=== PATIENT | male | born 1955 | race Caucasian/White ===

== ENCOUNTER 2021-11-21 12:13 | Outpatient (CLI) | payer MEDICARE, MEDICAID, SELFPAY ==
--- NOTE | 2021-11-21 12:29 | XRR_ITS ---
PROCEDURE INFORMATION: Exam: XR Chest Exam date and time: 11/21/2021 12:37 PM Age: 66 years old Clinical indication: Condition or disease; Lung condition and disease; Pulmonary nodule, solitary; Prior surgery; Surgery type: Lobectomy on right lung; Additional info: Lung nodule TECHNIQUE: Imaging protocol: Radiologic exam of the chest. Views: 2 views. Total images: 2 COMPARISON: CR Chest 2 views* [id number] 05/08/2017 12:21 PM FINDINGS: Lungs: Postsurgical changes noted in the right hilum and right upper lobe. Pleural spaces: Unremarkable. No pleural effusion. No pneumothorax. Heart/Mediastinum: Unremarkable. No cardiomegaly. Diaphragm: There is nonspecific elevation of the right hemidiaphragm. Bones/joints: Osseous structures are unchanged from the prior exam. XR/XR chest 2V* [id number] IMPRESSION: No acute cardiopulmonary process.
== END 2021-11-21 12:14 | disposition home or self-care (01) ==
PROVIDERS: PCP Family Medicine; Visit Provider Family Medicine
DX: Z00.00 Encounter for general adult medical examination without abnormal findings (principal); R91.8 Other nonspecific abnormal finding of lung field; R10.9 Unspecified abdominal pain
CPT/HCPCS: 71046; 80053; 80061; 83690; 85025; 86141

== ENCOUNTER → 2021-11-30 13:38 | Outpatient (BNVA) | payer MEDICARE, MEDICAID, SELFPAY | PROVIDERS: PCP Family Medicine; Referring Provider Family Medicine; Visit Provider Surgery | DX: R10.12 Left upper quadrant pain (principal) | CPT/HCPCS: 99203 ==

== ENCOUNTER → 2021-12-11 11:30 | Outpatient (BNVA) | payer MEDICARE, MEDICAID, SELFPAY | PROVIDERS: PCP Family Medicine; Visit Provider Family Medicine | DX: Z00.00 Encounter for general adult medical examination without abnormal findings (principal); R73.9 Hyperglycemia, unspecified; R10.12 Left upper quadrant pain; E78.5 Hyperlipidemia, unspecified | CPT/HCPCS: 80053; 80061; 83036; 83690; 85025; 86140 ==

== ENCOUNTER → 2023-02-28 12:28 | Outpatient (BNVA) | payer MEDICARE, MEDICAID, SELFPAY | PROVIDERS: PCP Family Medicine; Visit Provider Internal Medicine | DX: Z87.39 Personal history of other diseases of the musculoskeletal system and connective tissue (principal) | CPT/HCPCS: 36415; 80053; 85025; 85651; 86140; 86431; 86480; 86704; 86803; 87340; 99203 ==

== ENCOUNTER → 2023-04-16 13:11 | Outpatient (BNVA) | payer MEDICARE, MEDICAID, SELFPAY | PROVIDERS: PCP Family Medicine; Visit Provider Internal Medicine | DX: Z87.39 Personal history of other diseases of the musculoskeletal system and connective tissue (principal); M05.9 Rheumatoid arthritis with rheumatoid factor, unspecified; H93.19 Tinnitus, unspecified ear | CPT/HCPCS: 99214 ==

== ENCOUNTER → 2023-06-04 15:07 | Outpatient (BNVA) | payer MEDICARE, MEDICAID, SELFPAY | PROVIDERS: PCP Family Medicine; Visit Provider Internal Medicine | DX: Z87.39 Personal history of other diseases of the musculoskeletal system and connective tissue (principal); M05.9 Rheumatoid arthritis with rheumatoid factor, unspecified | CPT/HCPCS: 99214 ==

== ENCOUNTER 2023-06-14 14:23 | Outpatient (CLI) | payer MEDICARE, MEDICAID, SELFPAY ==
[2023-06-14 14:57] LABS: Basophils # 0.1 10^3/uL (0.0-0.1); Basophils % 1.6 %; Eosinophils # 0.4 10^3/uL (0.0-0.8); Eosinophils % 4.5 %; Hematocrit 41.8 % (37-53); Lymphocytes # 1.8 10^3/uL (0.8-4.8); Lymphocytes % 23.5 %; Mean Corpuscular Hemoglobin 30.1 pg (27-33); Mean Corpuscular Volume 88.6 fl (82-101); Mean Platelet Volume 9.7 fL (7.4-10.4); Monocytes # 1.1 10^3/uL (0.2-0.9); Monocytes % 13.6 %; Neutrophils # 4.34 10^3/uL (1.8-7.7); Neutrophils % 56.2 %; Nucleated Red Blood Cells % 0 %; Platelet Count 351 10^3/cmm (157-399); Red Blood Count 4.72 10^6/uL (3.85-5.65); Red Cell Distribution Width 13.6 % (12.1-15.1); White Blood Count 7.73 10^3/uL (3.29-11.43)
[2023-06-14 15:01] LABS: Erythrocyte Sedimentation Rate 12 mm/hr (0-10)
[2023-06-14 15:32] LABS: Alanine Aminotransferase 17 U/L (0-41); Albumin Level 4.2 g/dL (3.5-5.2); Alkaline Phosphatase 87 U/L (40-130); Anion Gap 14.6 (5-19); Aspartate Amino Transferase 12 U/L (0-40); Blood Urea Nitrogen 13 mg/dL (8-23); C Reactive Protein 3.7 mg/L (0.0-4.9); Calcium 9.6 mg/dL (8.5-10.5); Carbon Dioxide 26 mmol/L (22-29); Chloride 102 mmol/L (98-107); Globulin 2.8 g/dL (1.3-4.6); Glomerular Filtration Rate 83.9 mL/min (90-130); Glucose 108 mg/dL (65-115); Osmolality Calculated 287 mOsm/kg (285-295); Potassium 4.6 mmol/L (3.5-5.1); Sodium 138 mmol/L (136-145); Total Bilirubin 0.3 mg/dL (0.15-1.2)
== END 2023-06-14 14:24 | disposition home or self-care (01) ==
LOC: LAB 14:25
PROVIDERS: Internal Medicine; PCP Family Medicine; Visit Provider Internal Medicine Rheumatology
DX: Z87.39 Personal history of other diseases of the musculoskeletal system and connective tissue (principal); M05.9 Rheumatoid arthritis with rheumatoid factor, unspecified
CPT/HCPCS: 36415; 80053; 85025; 85651; 86140

== ENCOUNTER → 2023-10-29 12:51 | Outpatient (BNVA) | payer MEDICARE, MEDICAID, SELFPAY | PROVIDERS: PCP Family Medicine; Visit Provider Internal Medicine Rheumatology | DX: M05.79 Rheumatoid arthritis with rheumatoid factor of multiple sites without organ or systems involvement (principal); Z79.899 Other long term (current) drug therapy; Z71.85 Encounter for immunization safety counseling; Z87.891 Personal history of nicotine dependence; Z11.1 Encounter for screening for respiratory tuberculosis; Z11.59 Encounter for screening for other viral diseases | CPT/HCPCS: 36415; 80076; 82565; 85025; 86140; 99215 ==

== ENCOUNTER 2024-01-22 08:23 | Outpatient (CLI) | payer MEDICARE, MEDICAID, SELFPAY ==
--- NOTE | 2024-01-22 08:32 | XR_ITS ---
WS: [id number] Examination: XR chest 2V* [id number] Reason for Exam: History of lung cancer, dyspnea Date: 01/22/2024 Comparison: 11/21/2021. Findings: Heart is not enlarged. The mediastinum is not widened Surgical clips at the right hilum are identified. The emily remain prominent but unchanged The lungs are hyperinflated There is no pulmonary edema. No large effusion is identified. There is mild chronic blunting at the r ight costophrenic angle XR/XR chest 2V* [id number] Impression: The lungs are hyperinflated with chronic obstructive change No acute lung process is seen.
== END 2024-01-22 08:24 | disposition home or self-care (01) ==
LOC: RAD 08:28
PROVIDERS: PCP Family Medicine; Visit Provider Family Medicine
DX: Z85.118 Personal history of other malignant neoplasm of bronchus and lung (principal); R06.00 Dyspnea, unspecified; J98.4 Other disorders of lung
CPT/HCPCS: 71046

== ENCOUNTER → 2024-03-10 13:24 | Outpatient (BNVA) | payer MEDICARE, MEDICAID, SELFPAY | PROVIDERS: PCP Family Medicine; Visit Provider Internal Medicine Rheumatology | DX: M05.79 Rheumatoid arthritis with rheumatoid factor of multiple sites without organ or systems involvement (principal); Z79.899 Other long term (current) drug therapy; Z71.85 Encounter for immunization safety counseling; Z11.1 Encounter for screening for respiratory tuberculosis; Z11.59 Encounter for screening for other viral diseases; Z87.891 Personal history of nicotine dependence; H54.62 Unqualified visual loss, left eye, normal vision right eye | CPT/HCPCS: 36415; 80076; 82565; 85025; 85651; 86140; 99214 ==

== ENCOUNTER → 2024-03-13 10:04 | Outpatient (BNVA) | payer MEDICARE, MEDICAID, SELFPAY | PROVIDERS: PCP Family Medicine; Referring Provider Family Medicine; Visit Provider Student in an Organized Health Care Education/Training Program | DX: K92.1 Melena (principal); R12 Heartburn | CPT/HCPCS: 99204; 99214 ==

== ENCOUNTER 2024-04-13 10:06 | Day surgery (SDC) | payer MEDICARE, MEDICAID, SELFPAY ==
[2024-04-13 10:22] VITALS: BP 113/83; PULSE 127; RESP 18; TEMP 36.3; O2SAT 98; BMI 22.0
--- NOTE | 2024-04-13 10:32 | ECG_ITS ---
[facility] Date: 2024-04-13 Pat Name: Catracho Patel Department: Room: Gender: Male Complex Director: : [id number] Requested By: Marcia Fields Order Number: [id number] Mayra MD: DIONNE VILLA Measurements Intervals [place] Rate: 110 P: 76 MO: 120 QRS: 64 QRSD: 94 T: 81 QT: 319 QTc: 432 Interpretive Statements SINUS TACHYCARDIA NONSPECIFIC T-WAVE ABNORMALITY ABNORMAL RHYTHM ECG No previous ECG available for comparison Electronically Signed On 04-13-2024 18:53:44 OFFICE ADMINISTRATION by DIONNE VILLA [id number]
[2024-04-13] MEDS: sodium chloride 0.9% 1,000 ML 30 ML IV (10:35)
--- NOTE | 2024-04-13 10:38 | ANES.PREANE2 ---
Pre-Anesthetic Assessment Height/Weight: Height 1.73 m Weight 65.771 kg Temp Pulse Resp BP Pulse Ox O2 Del Method 97.3 F L 127 H 18 113/83 98 Room Air 04/13/24 10:22 04/13/24 10:22 04/13/24 10:22 04/13/24 10:22 04/13/24 10:22 04/13/24 10:22 Preop Diagnosis: bloody stools Operation Date: 04/13/24 11:30 Proposed Procedures p Colonoscopy 42675,G0105, 08241, R12, K92.1(Not Applicable) - Eleazar Amin MD s EGD(Not Applicable) - Eleazar Amin MD Familial anesthetic complications: none Was Beta Leyla taken within 24 hours: N/A Was Clonidine taken within 24 hours: N/A Last intake: Intake Last Liquid Date 04/12/24 Last Liquid Time 14:00 Last Solid Date 04/11/24 Last Solid Time 18:00 Social No alcohol and No tobacco quit smoking 20 years ago Exam alert and oriented x 3 Airway Submandibular: within normal limits Cervical ROM: within normal limits Mallampati: Class I Dentition: false Pulmonary Shortness of Breath right lobectomy 15 years ago CV/HEM Hypertension None reported Hepatic None reported GI Gastroesophageal Reflux Disease Metabolic None reported Musc/skel None reported Neuropsych None reported Anesthetic Plan ASA status: 3 Anesthesia: Anesthesia Evaluation and MAC Medications/Allergies Home Medications Medication Instructions Recorded Confirmed Last Taken Type losartan 50 mg tablet 50 mg PO DAILY #30 tabs 02/07/24 04/08/24 04/08/24 Rx leflunomide 20 mg tablet 20 mg PO DAILY #30 tabs 03/10/24 04/08/24 04/08/24 Rx tramadol 50 mg tablet 50 mg PO TID PRN pain (scale score 03/10/24 04/08/24 04/10/24 Rx 7-10) #60 tabs Allergies Allergy/AdvReac Type Severity Reaction Status Date / Time No Known Allergies Allergy Verified 04/08/24 11:49 Current Medications Generic Name Dose Route Start Last Admin Trade Name Freq PRN Reason Stop Dose Admin Sodium Chloride 1,000 mls @ 30 mls/hr 04/13/24 10:15 04/13/24 10:35 Sodium Chloride 0.9% IV 04/14/24 10:14 30 mls/hr .Q24H GRAYSON Administration PFSH Anesthesia Medical History History of lung cancer Immunization counseling High risk medication use Seropositive rheumatoid arthritis of multiple sites Tinnitus Hx of rheumatoid arthritis Abdominal pain Surgical History Hx of eye surgery bilateral eyes 6-7 on left eye History of lobectomy of lung Family History (Updated 03/13/24 @ 10:36 by ANDREZ Covarrubias) Mother Diabetes Unknown Cancer uncle Sister Colon cancer Social History Smoking and tobacco/nicotine status: never used tobacco/nicotine Quit status (tobacco/nicotine): has quit using Year quit tobacco: 2008 Former quit date comment: ~40 pack years Alcohol intake: current Alcohol intake frequency: holidays/special occasions only Alcohol type: beer Data Anesthesia Cardiac Studies: No Data to Display
--- NOTE | 2024-04-13 11:48 | W.PM.OPSFHP ---
Same Day Surgery H&P Indication for Procedure/HPI DATE OF PROCEDURE: April 13, 2024 CHIEF COMPLAINT/INDICATIONFOR SURGICAL PROCEDURE: heartburn and hematochezia PREOP DIAGNOSIS: heartburn and hematochezia PLANNED PROCEDURE: Operation Date: 04/13/24 11:30 Proposed Procedures p Colonoscopy 52712,G0105, 82477, R12, K92.1(Not Applicable) - Eleazar Amin MD s EGD(Not Applicable) - Eleazar Amin MD Medications/Allergies* Allergies/Adverse Reactions Allergy/AdvReac Type Severity Reaction Status Date / Time No Known Allergies Allergy Verified 04/08/24 11:49 Current Medications: Generic Name Dose Route Start Last Admin Trade Name Freq PRN Reason Stop Dose Admin Sodium Chloride 1,000 mls @ 30 mls/hr 04/13/24 10:15 04/13/24 10:35 Sodium Chloride 0.9% IV 04/14/24 10:14 30 mls/hr .Q24H GRAYSON Administration Pertinent History/Comorbid Conditions* Medical History (Updated 03/12/24 @ 12:10 by Gerhard Veras MD) History of lung cancer Immunization counseling High risk medication use Seropositive rheumatoid arthritis of multiple sites Tinnitus Hx of rheumatoid arthritis Abdominal pain Surgical History (Updated 10/12/22 @ 11:19 by Doug Bowen NP) Hx of eye surgery bilateral eyes 6-7 on left eye History of lobectomy of lung Family History (Updated 03/13/24 @ 10:36 by ANDREZ Covarrubias) Colon cancer Sister Diabetes Mother Cancer Unknown uncle Social History Smoking and tobacco/nicotine status: never used tobacco/nicotine Quit status (tobacco/nicotine): has quit using Year quit tobacco: 2008 Former quit date comment: ~40 pack years Alcohol intake: current Alcohol intake frequency: holidays/special occasions only Alcohol type: beer Pertinent Exam Findings alert, oriented x 3, clear to auscultation bilaterally, regular rate & rhythm and procedure specific exam findings Abdomen soft, nt, nd Recommendations Surgery/Procedure today Coding Level of Care Code Acute Code for Chg Fwd
[2024-04-13 11:51] VITALS: BP 132/85; PULSE 89; RESP 18; TEMP 36.2; O2SAT 96
[2024-04-13 11:59] VITALS: BP 120/88; PULSE 98; RESP 18; TEMP 36.2; O2SAT 97
--- NOTE | 2024-04-13 12:45 | ANE.PACU2 ---
Inpatient post-anesthesia follow up: Airway intact: Yes Vital signs: Temperature 97.1 F Pulse Rate 98 Respiratory Rate 18 Blood Pressure 120/88 Pulse Oximetry 97 Oxygen Delivery Me thod Room Air Oxygen Flow Rate Fraction of Inspir ed Oxygen Hydration adequate: Yes Nausea and vomiting: No Pain level: 1 Mental status: Baseline
== END 2024-04-13 12:35 | disposition home or self-care (01) ==
PROVIDERS: PCP Family Medicine; Visit Provider Student in an Organized Health Care Education/Training Program
PROC: 0DJD8ZZ Inspection of Lower Intestinal Tract, Via Natural or Artificial Opening Endoscopic (ICD-10-PCS; CPT 45378; principal; 2024-04-13 11:30)
PROC: 0DJ08ZZ Inspection of Upper Intestinal Tract, Via Natural or Artificial Opening Endoscopic (ICD-10-PCS; CPT 43235; 2024-04-13 11:30)
DX: K92.1 Melena (principal); D12.4 Benign neoplasm of descending colon; D12.8 Benign neoplasm of rectum; R12 Heartburn; K29.70 Gastritis, unspecified, without bleeding; K29.80 Duodenitis without bleeding; Z85.118 Personal history of other malignant neoplasm of bronchus and lung; Z87.891 Personal history of nicotine dependence; I10 Essential (primary) hypertension; K21.9 Gastro-esophageal reflux disease without esophagitis
CPT/HCPCS: 43239; 45385; 88305; 93005; J2704; J7030

== ENCOUNTER → 2024-05-15 08:56 | Outpatient (BNVA) | payer MEDICARE, MEDICAID, SELFPAY | PROVIDERS: PCP Family Medicine; Visit Provider Student in an Organized Health Care Education/Training Program | DX: Z09 Encounter for follow-up examination after completed treatment for conditions other than malignant neoplasm (principal) | CPT/HCPCS: 99213 ==

== ENCOUNTER → 2024-06-01 13:00 | Outpatient (BNVA) | payer MEDICARE, MEDICAID, SELFPAY | PROVIDERS: PCP Family Medicine; Visit Provider Internal Medicine Rheumatology | DX: Z79.899 Other long term (current) drug therapy (principal); M05.79 Rheumatoid arthritis with rheumatoid factor of multiple sites without organ or systems involvement; Z11.1 Encounter for screening for respiratory tuberculosis; Z11.59 Encounter for screening for other viral diseases; Z71.85 Encounter for immunization safety counseling | CPT/HCPCS: 36415; 80076; 82565; 85025; 85651; 86140; 86480; 86704; 86803; 87340; 99214 ==

== ENCOUNTER → 2024-09-07 14:21 | Outpatient (BNVA) | payer MEDICARE, MEDICAID, SELFPAY | PROVIDERS: PCP Family Medicine; Visit Provider Internal Medicine Rheumatology | DX: M05.79 Rheumatoid arthritis with rheumatoid factor of multiple sites without organ or systems involvement (principal); Z79.899 Other long term (current) drug therapy; Z71.85 Encounter for immunization safety counseling | CPT/HCPCS: 36415; 80076; 82565; 85025; 85651; 86140; 99214 ==

== ENCOUNTER → 2024-11-06 12:29 | Outpatient (BNVA) | payer MEDICARE, MEDICAID, SELFPAY | PROVIDERS: PCP Family Medicine; Visit Provider Family Medicine Adult Medicine | DX: I70.0 Atherosclerosis of aorta (principal) | CPT/HCPCS: 71046 ==

== ENCOUNTER 2025-01-11 09:06 | Outpatient (CLI) | payer MEDICARE, MEDICAID, SELFPAY ==
--- NOTE | 2025-01-11 15:24 | XR_ITS ---
Exam: XR cervical spine 4-5V [id number] Date/Time of Exam: 01/11/2025 9:22 AM Reason For Exam: R cervical radiculopathy w numbness in the 4th/5th fingers DLP: Comparison 04/28/2014. 5 mm degenerative anterolisthesis of C4 on C5. Facet arthropathy and degenerative disc change from C3-C7. Reversal of the normal cervical lordosis at the mid and lower cervical levels. Narrowing of the bony neuroforaminal on the RIGHT at C3-4, C4-5, C5-6 and C6-7. Narrowing of the bony neural foramina on the LEFT at C3-4, C4-5 and C6-7. Normal paraspinal soft tissues. The dens is intact. Levoscoliosis. IMPRESSION: 1. 5 mm degenerative anterolisthesis of C4 on C5. Additional degenerative changes and bilateral foraminal stenosis as detailed above. 2. No fracture or instability identified. MTDD
== END 2025-01-11 09:07 | disposition home or self-care (01) ==
LOC: RAD 09:09
PROVIDERS: PCP Family Medicine; Visit Provider Family Medicine
DX: M54.12 Radiculopathy, cervical region (principal); M48.02 Spinal stenosis, cervical region
CPT/HCPCS: 72050

== ENCOUNTER → 2025-01-19 14:04 | Outpatient (BNVA) | payer MEDICARE, MEDICAID, SELFPAY | PROVIDERS: PCP Family Medicine; Visit Provider Internal Medicine Rheumatology | DX: M05.79 Rheumatoid arthritis with rheumatoid factor of multiple sites without organ or systems involvement (principal); Z79.899 Other long term (current) drug therapy; Z71.85 Encounter for immunization safety counseling | CPT/HCPCS: 36415; 80076; 82565; 85025; 85651; 86140; 99214 ==

== ENCOUNTER 2025-01-22 15:14 | Outpatient (CLI) | payer MEDICARE, MEDICAID, SELFPAY ==
--- NOTE | 2025-01-22 15:30 | MR_ITS ---
WS: [id number] MRI CERVICAL SPINE NONCONTRAST TECHNIQUE: Sagittal T1, T2 and STIR imaging. Axial T2, gradient, and fiesta imaging. CLINICAL INFORMATION: Right cervical radiculopathy with weakness in right hand COMPARISON: None. FINDINGS: Straightening of the normal cervical lordosis. Moderate spondylitic changes. Slight anterolisthesis C4 on C5 and C5 on C6. Cord signal is normal. C2-C3: Moderate LEFT facet arthropathy. Mild to moderate LEFT bony foraminal narrowing. C3-C4: Disc osteophyte complex with mild central canal stenosis. Moderate to advanced LEFT facet arthropathy. Moderate LEFT bony foraminal narrowing. C4-C5: Disc osteophyte complex with endplate ridging. Moderate to advanced RIGHT facet arthropathy. Severe RIGHT bony foraminal narrowing. Mild LEFT bony foraminal narrowing. C5-C6: Disc osteophyte complex with mild central canal stenosis. Moderate RIGHT and mild LEFT bony foraminal narrowing. Uncovertebral joint hypertrophy. C6-C7: Disc osteophyte complex with moderate to severe LEFT and moderate RIGHT bony foraminal narrowing. Uncovertebral joint hypertrophy. C7-T1: Mild to moderate RIGHT and no significant LEFT foraminal narrowing. Mild facet arthropathy. Visualized brain stem structures: Normal. Prevertebral soft tissues: Normal. MR/MR cervical spin wo con* [id number] IMPRESSION: 1. Straightening of the normal cervical doses. Moderate spondylitic changes. 2. Mild central canal stenosis C3-C4 and C5-C6 due to disc osteophyte complexe s. 3. Moderate to severe bony foraminal narrowing worse at LEFT C3-4, RIGHT C4-5, RIGHT C5-C6, and LEFT C6-7.
== END 2025-01-22 15:15 | disposition home or self-care (01) ==
LOC: RAD 15:15
PROVIDERS: PCP Family Medicine; Visit Provider Family Medicine
DX: M54.12 Radiculopathy, cervical region (principal); M48.02 Spinal stenosis, cervical region; M25.78 Osteophyte, vertebrae; M47.892 Other spondylosis, cervical region; R93.7 Abnormal findings on diagnostic imaging of other parts of musculoskeletal system; M48.04 Spinal stenosis, thoracic region; M47.894 Other spondylosis, thoracic region
CPT/HCPCS: 72141

== ENCOUNTER → 2025-02-04 15:07 | Outpatient (BNVA) | payer MEDICARE, MEDICAID, SELFPAY | PROVIDERS: PCP Family Medicine; Visit Provider Orthopaedic Surgery | DX: M54.12 Radiculopathy, cervical region (principal); M48.02 Spinal stenosis, cervical region; Z01.818 Encounter for other preprocedural examination; G99.2 Myelopathy in diseases classified elsewhere | CPT/HCPCS: 36415; 72050; 80053; 81001; 85025; 99204 ==

== ENCOUNTER 2025-03-17 14:32 | Inpatient (IN) | payer MEDICARE, MEDICAID, SELFPAY ==
[2025-03-17] VITALS (17 sets, daily range): BP systolic 140–179; BP diastolic 73–104; PULSE 78–100; RESP 16–18; TEMP 36.1–36.8; O2SAT 92–99; BMI 20.9
--- NOTE | 2025-03-17 10:10 | XR_ITS ---
WS: [id number] Exam: XR cervical spine 3V* [id number] Date/Time of Exam: 03/17/2025 10:10 AM Reason For Exam: [facility]AY[facility] IMAGES DLP: Intraoperative AP and lateral C-arm images of the cervical spine are submitted. Images depict anterior plate and screw fixation of the cervical spine from C3-C7 with intervening disc spacers. Images were obtained for intraoperative visualization purposes.
--- NOTE | 2025-03-17 10:46 | P.ANESASSM_ITS ---
Pre-Anesthetic Assessment Height/Weight: Height 1.73 m Weight 62.596 kg Temp Pulse Resp BP Pulse Ox O2 Del Method 98.2 F 83 18 176/93 97 Room Air 03/17/25 10:31 03/17/25 10:31 03/17/25 10:31 03/17/25 10:31 03/17/25 10:31 03/17/25 10:31 Preop Diagnosis: Cervical stenosis with radiculopathy and myelopathy Operation Date: 03/17/25 11:30 Proposed Procedures p Anterior Cervical Discectomy & Fusion ACDF(Not Applicable) - Curtis Cadet, DO Familial anesthetic complications: None Was Beta Leyla taken within 24 hours: N/A Was Clonidine taken within 24 hours: N/A Last intake: Intake Last Liquid Date 03/16/25 Last Liquid Time 20:00 Last Solid Date 03/16/25 Last Solid Time 20:00 Social No alcohol and No tobacco Exam alert, oriented x 3, clear to auscultation bilaterally and regular rate & rhythm Airway Mallampati: Class II Comments: Comments: full [place] Pulmonary Chronic Obstructive Pulmonary Disease CV/HEM Hypertension [facility] Rheumatoid Arthritis Anesthetic Plan ASA status: 3 Anesthesia: General Risk of > 500 ml blood loss (7ml/kg in children): No Medications/Allergies Home Medications ?Medication ?Instructions ?Recorded ?Confirmed ?Last Taken ?Type adalimumab 40 mg/0.8 mL 40 mg (0.8 mL) SUBCUT Q14D # 2 ea 01/19/25 03/16/25 03/16/25 10:00 Rx subcutaneous pen kit (Humira Pen) leflunomide 20 mg tablet 20 mg PO DAILY #90 tabs 07/1403/16/25 03/16/25 10:00 Rx pantoprazole 40 mg tablet,delayed 40 mg PO BID #84 tab s 01/19/25 03/16/25 03/16/25 10:00 Rx release (Protonix) losartan 50 mg tablet 75 mg (1.5 x 50 mg) PO DAILY #135 01/20/25 03/16/25 03/16/25 10:00 Rx tabs pregabalin 100 mg capsule (Lyrica) 100 mg PO BID #60 c aps 01/20/25 03/16/25 03/16/25 10:00 Rx gabapentin 300 mg capsule 300 mg PO BID #60 caps 02/0903/16/25 03/16/25 Rx dorzolamide 22.3 mg-timolol 6.8 22.3 drp ophthalmic (e ye) 2XD 03/17/25 03/17/25 03/16/25 History mg/mL eye drops prednisolone acetate 1 % eye 1 drp ophthalmic (eye) 2X D 03/17/25 03/17/25 03/16/25 History drops,suspension tramadol 50 mg tablet 50 mg PO TID PRN pain (scale score 03/17/25 03/17/25 03/16/25 Rx 7-10) #60 tabs Allergies Allergy/AdvReac Type Severity Reaction Status Date / Time No Known Allergies Allergy Verified 03/16/25 11:54 [facility] Anesthesia Medical History (Updated 02/04/25 @ 17:29 by Curtis Cadet DO) Right-sided chest wall pain History of lung cancer Immunization counseling High risk medication use Seropositive rheumatoid arthritis of multiple sites Tinnitus Hx of rheumatoid arthritis Abdominal pain Surgical History Hx of eye surgery bilateral eyes 6-7 on left eye History of lobectomy of lung Family History Mother Diabetes Unknown Cancer uncle Sister Colon cancer Social History Smoking and tobacco/nicotine status: former use of tobacco/nicotine Quit status (tobacco/nicotine): has quit using Year quit tobacco: 2008 Former quit date comment: ~40 pack years Alcohol intake: current Alcohol intake frequency: few times a week Alcohol type: beer
--- NOTE | 2025-03-17 11:17 | P.HP_ITS ---
Same Day Surgery H&P Indication for Procedure/HPI DATE OF PROCEDURE: March 17, 2025 CHIEF COMPLAINT/INDICATIONFOR SURGICAL PROCEDURE: Neck and arm pain PREOP DIAGNOSIS: Cervical stenosis with radiculopathy and myelopathy PLANNED PROCEDURE: Operation Date: 03/17/25 11:30 Proposed Procedures p Anterior Cervical Discectomy & Fusion ACDF(Not Applicable) - Curtis Cadet DO Medications/Allergies* Home Medications ?Medication ?Instructions ?Recorded ?Confirmed ?Type dorzolamide 22.3 mg-timolol 6.8 22.3 drp ophthalmic (e ye) 2XD 03/17/25 03/17/25 History mg/mL eye drops prednisolone acetate 1 % eye 1 drp ophthalmic (eye) 2X D 03/17/25 03/17/25 History drops,suspension Allergies/Adverse Reactions Allergy/AdvReac Type Severity Reaction Status Date / Time No Known Allergies Allergy Verified 03/16/25 11:54 Current Medications: Generic Name Dose Route Start Last Admin Trade Name Freq PRN Reason Stop Dose Admin Sodium Chloride 1,000 mls @ 30 mls/hr 03/17/25 10:00 03/17/25 11:09 Sodium Chloride 0.9% IV 03/18/25 09:59 30 mls/hr .Q24H GRAYSON Administration Pertinent History/Comorbid Conditions* Medical History (Updated 02/04/25 @ 17:29 by Curtis Cadet DO) Right-sided chest wall pain History of lung cancer Immunization counseling High risk medication use Seropositive rheumatoid arthritis of multiple sites Tinnitus Hx of rheumatoid arthritis Abdominal pain Surgical History (Updated 10/12/22 @ 11:19 by Doug Bowen NP) Hx of eye surgery bilateral eyes 6-7 on left eye History of lobectomy of lung Family History (Updated 03/13/24 @ 10:36 by ANDREZ Covarrubias) Colon cancer Sister Diabetes Mother Cancer Unknown uncle Social History Smoking and tobacco/nicotine status: former use of tobacco/nicotine Quit status (tobacco/nicotine): has quit using Year quit tobacco: 2008 Former quit date comment: ~40 pack years Alcohol intake: current Alcohol intake frequency: few times a week Alcohol type: beer Pertinent Exam Findings oriented x 3 and procedure specific exam findings Recommendations Risks and benefits of procedure reviewed Surgery/Procedure today Coding Level of Care Code Acute Code for Chg Fwd
[2025-03-17] MEDS: ceFAZolin 2,000 mg SDV 2000 MG IVP ×2 (11:51→20:34)
[2025-03-17] MEDS: lidocaine-epi 1% 20 mL INJ INJECTION (12:36)
--- NOTE | 2025-03-17 14:41 | PM.OP ---
Operative Report Date of procedure: March 17, 2025 Pre-op diagnosis: Cervical stenosis with radiculopathy and myelopathy Post-op diagnosis: same Procedure done: 1. Anterior diskectomy C3/4 2. Anterior diskectomy C4/5 3. Anterior diskectomy C5/6 4. Anterior discectomy C6/7 5. Insertion of cage C3/4 6. Insertion of cage C4/5 7. Insertion of cage C5/6 8. Insertion of Cage C6/7 9. Instrumentation with anterior plate from C3-C7 10.Use of allograft Surgeon: Curtis Cadet DO Estimated blood loss (mL): 20 Procedure: 1. Anterior diskectomy C3/4 2. Anterior diskectomy C4/5 3. Anterior diskectomy C5/6 4. Anterior discectomy C6/7 5. Insertion of cage C3/4 6. Insertion of cage C4/5 7. Insertion of cage C5/6 8. Insertion of Cage C6/7 9. Instrumentation with anterior plate from C3-C7 10.Use of allograft The patient was taken to the operating room, where he underwent general endotracheal anesthesia without complications. He was then positioned supine on the operating table, and all areas of impingement were well padded. The arms were carefully padded and tucked at his sides. A roll was placed between the shoulder blades.. An x-ray was done to determine the appropriate level for the skin incision. The entire neck was then sterilely prepped and draped in the usual fashion. Neuromonitoring was attached prior to prepping. A transverse skin incision was made and carried down to the platysma muscle. This was then split in line with its fibers. Blunt dissection was carried down medial to the carotid sheath and lateral to the trachea and esophagus until the anterior cervical spine was visualized. A needle was placed into a disc and an x-ray was done to determine its location. The longus colli muscles were then elevated bilaterally with the electrocautery unit. Self-retaining retractors were placed deep to the longus colli muscle. Attention was brought to the C3/4 level that was confirmed on x-ray. A caspar pin was placed into the C3 vertebrae and the C4 vertebrae. The disk space was then distracted. The microscope was then brought in. A radical anterior discectomies were performed at C 3/4. This included complete removal of the anterior annulus, nucleus, and posterior annulus. The posterior longitudinal ligament was removed as were the posterior osteophytes. Foraminotomies were then accomplished bilaterally. This was done using a high speed beny, kerrison rongeurs and curretes Once all of this was accomplished, the curved currette was used to check for any residual compression. The central canal was wide open as were the foramen. A high-speed bur was used to remove the cartilaginous endplates above and below the interspace. Bleeding cancellous bone was exposed. The disc space were measured and appropriate size cage were placed sterilely onto the field. Allograft graft was packed into the cages. The cage was then placed and there was good juxtaposition against the bleeding decorticated surfaces and good distraction of each interspace. Attention was brought to the next interspace. The [place] pins were removed. Bone wax was used to prevent any bleeding from occurring at the pin sites. Attention was brought to the C4/5 level that was confirmed on x-ray. A caspar pin was placed into the C4 vertebrae and the C5 vertebrae. The disk space was then distracted. The microscope was then brought in. A radical anterior discectomies were performed at C4/5. This included complete removal of the anterior annulus, nucleus, and posterior annulus. The posterior longitudinal ligament was removed as were the posterior osteophytes. Foraminotomies were then accomplished bilaterally. This was done using a high speed beny, kerrison rongeurs and curretes Once all of this was accomplished, the curved currette was used to check for any residual compression. The central canal was wide open as were the foramen. A high-speed bur was used to remove the cartilaginous endplates above and below the interspace. Bleeding cancellous bone was exposed. The disc space were measured and appropriate size cage were placed sterilely onto the field. Allograft graft was packed into the cages. The cage was then placed and there was good juxtaposition against the bleeding decorticated surfaces and good distraction of each interspace. Attention was brought to the next interspace. The [place] pins were removed. Bone wax was used to prevent any bleeding from occurring at the pin sites. Attention was brought to the C5/6 level that was confirmed on x-ray. A caspar pin was placed into the C5 vertebrae and the C6 vertebrae. The disk space was then distracted. The microscope was then brought in. A radical anterior discectomies were performed at C5/6. This included complete removal of the anterior annulus, nucleus, and posterior annulus. The posterior longitudinal ligament was removed as were the posterior osteophytes. Foraminotomies were then accomplished bilaterally. This was done using a high speed beny, kerrison rongeurs and curretes Once all of this was accomplished, the curved currette was used to check for any residual compression. The central canal was wide open as were the foramen. A high-speed bur was used to remove the cartilaginous endplates above and below the interspace. Bleeding cancellous bone was exposed. The disc space were measured and appropriate size cage were placed sterilely onto the field. Allograft graft was packed into the cages. The cage was then placed and there was good juxtaposition against the bleeding decorticated surfaces and good distraction of each interspace. Attention was brought to the next interspace. The [place] pins were removed. Bone wax was used to prevent any bleeding from occurring at the pin sites. Attention was brought to the C6/7 level that was confirmed on x-ray. A caspar pin was placed into the C6 vertebrae and the C7 vertebrae. The disk space was then distracted. The microscope was then brought in. A radical anterior discectomies were performed at C6/7. This included complete removal of the anterior annulus, nucleus, and posterior annulus. The posterior longitudinal ligament was removed as were the posterior osteophytes. Foraminotomies were then accomplished bilaterally. This was done using a high speed beny, kerrison rongeurs and curretes Once all of this was accomplished, the curved currette was used to check for any residual compression. The central canal was wide open as were the foramen. A high-speed bur was used to remove the cartilaginous endplates above and below the interspace. Bleeding cancellous bone was exposed. The disc space were measured and appropriate size cage were placed sterilely onto the field. Allograft graft was packed into the cages. The cage was then placed and there was good juxtaposition against the bleeding decorticated surfaces and good distraction of each interspace. The [place] pins were removed. Bone wax was used to prevent any bleeding from occurring at the pin sites. The appropriate size anterior cervical locking plate was chosen and bent into gentle lordosis. Two screws were then placed into each of the vertebral bodies at C3, C4, C5, C6 and C7. There was excellent purchase. A final x-ray was done confirming good position of the hardware and Cages. The locking screws were then applied, also with excellent purchase. Following a final copious irrigation, there was good hemostasis and no dural leaks. The carotid pulse was strong. The wounds were then closed in layers using 2-0 Vicryl suture for the platysma muscle, 2-0 Vicryl suture for the subcutaneous tissue, and 4-0 monocryl suture in a subcuticular skin closure. Glue was placed followed by application of a sterile dressing. The drain was hooked to bulb suction. A soft collar was applied. The patient was then carefully returned to the supine position on his hospital bed where he was reversed and extubated and taken to the recovery room having tolerated the procedure well.
--- NOTE | 2025-03-17 15:00 | ANE.PACU2 ---
Inpatient post-anesthesia follow up: Airway intact: Yes Vital signs: Temperature 97.7 F Pulse Rate 80 Respiratory Rate 18 Blood Pressure 128/73 Pulse Oximetry 96 Oxygen Delivery Me thod Room Air Oxygen Flow Rate 1 Fraction of Inspir ed Oxygen Hydration adequate: Yes Nausea and vomiting: No Pain level: 1 Mental status: Baseline
[2025-03-17] MEDS: HYDROcodone-acetaminophen 5-325 mg Tablet PO ×2 (15:47→20:34)
[2025-03-17] MEDS: morphine 4 mg/mL SDV 1 mL 2 MG IVP (18:11)
[2025-03-18] VITALS (7 sets, daily range): BP systolic 116–148; BP diastolic 71–82; PULSE 70–98; RESP 16–18; TEMP 36.3–36.8; O2SAT 90–97
[2025-03-18] MEDS: ceFAZolin 2,000 mg SDV 2000 MG IVP (04:11)
[2025-03-18] MEDS: HYDROcodone-acetaminophen 5-325 mg Tablet PO (08:43)
[2025-03-18] MEDS: phenol oral Spray 177 mL 3 SPRAY MUCOUS MEM (08:49)
--- NOTE | 2025-03-18 09:48 | P.DS_ITS ---
Discharge Providers Date of Admission: 03/17/25 14:32 Date of Discharge: March 18, 2025 Attending Provider at Admission: Curtis Cadet DO Attending Provider at Discharge: Curtis Cadet DO Primary Care Provider: Gerhard Veras MD Reason for Visit Reason for Visit: M54.12 Physical Exam Narrative: doing well Urinary Catheter Management: Garcia: Cath Placed During This Visit: no Reason for Continuing Indwelling Catheter: Required Immobilization for Trauma or Surgery or Anesthesia Discharge Data Studies Completed and Pending Pending at discharge Category Date Time Status C-arm Fluoroscopy 01721 Routine Exams 03/17/25 09:57 Taken Laboratory Results Blood Type A Positive 03/17/25 11:00 Rho(D) Type Rh positive 03/17/25 11:00 Antibody Screen Negative 03/17/25 11:00 Vitals Last Vital Signs Temp 97.7 F 03/18/25 07:42 Pulse 80 03/18/25 07:42 Resp 18 03/18/25 07:42 BP 128/73 03/18/25 07:42 Pulse Ox 96 03/18/25 07:42 O2 Del Method Room Air 03/18/25 07:42 O2 Flow Rate 1 03/18/25 02:09 Discharge Plan Discharge Patient Disposition: Home Condition: Stable Prescriptions: New hydrocodone-acetaminophen 5-325 mg tablet 1 - 2 tab PO .Q4-6H Qty: 40 0RF hydrocodone-acetaminophen 5-325 mg tablet 1 - 2 tab PO .Q4-6H Qty: 40 0RF Continued Humira Pen 40 mg/0.8 mL pen injector kit 40 mg SUBCUT Q14D Qty: 2 5RF leflunomide 20 mg tablet 20 mg PO DAILY Qty: 90 1RF pantoprazole [Protonix] 40 mg tablet,delayed release (DR/EC) 40 mg PO BID Qty: 84 1RF losartan 50 mg tablet 75 mg PO DAILY Qty: 135 3RF pregabalin [Lyrica] 100 mg capsule 100 mg PO BID Qty: 60 3RF gabapentin 300 mg capsule 300 mg PO BID Qty: 60 6RF prednisolone acetate 1 % drops,suspension 1 drp ophthalmic (eye) 2XD dorzolamide-timolol 22.3-6.8 mg/mL drops 22.3 drp ophthalmic (eye) 2XD Discontinued tramadol 50 mg tablet 50 mg PO TID PRN (Reason: pain (scale score 7-10)) Qty: 60 0RF Discharge Diet: Advance as tolerated Discharge Activity: Limit activity as instructed Patient Instructions: Acute Wound Care (DC), Opioid Safety, Post Anesthesia Care, Patient Portal & Barrett Instructions Activity Restrictions/Additional Instructions: Thank you for choosing [facility] for your care! The following is a list of instructions, from your provider, to follow upon your discharge to ensure you have the optimal recovery from your recent injury or surgery. Anterior Cervical Discectomy and Fusion: What to Expect at Home Your Recovery Follow-up care is a ruiz part of your treatment and safety. Be sure to make and go to all appointments, and call your doctor if you are having problems. If you do not already have a follow-up appointment made, call office in the next 1-3 days to make follow up appointment for 2 weeks at [phone]. It is also a good idea to know your test results and keep a list of the medicines you take. You can expect your neck to feel stiff or sore after surgery. This should improve in the weeks after surgery. But it may take 4 to 6 months for you to get better completely. You may have trouble sitting or standing in one position for very long and may need pain medicine in the weeks after your surgery. It may take 4 to 6 weeks to get back to your usual activities, but it may depend on what kind of surgery you had. Your throat will feel sore and it may be difficult to swallow for the first 3 days after your surgery. As long as you can get liquids down without difficulty, this should slowly improve, otherwise call our office or seek medical attention if it becomes increasingly difficult to get anything down including liquids. Avoid hot liquids for first 3-5 days. Soothing foods/liquids such as jello, pudding, and luke warm soups are recommended until swallowing improves. Staying elevated will also help, it's advised you keep propped up at while sleeping to help reduce the swelling. You may use an ice pack directly on your incision or around it on the front of your neck, using a cloth to protect your skin; and a heating pad to the back of your neck as needed. Do not use over the counter anti-inflammatory medications (Ibuprofen, Motrin, Aleve, Advil, etc) Taking these meds after having a fusion can delay fusion rates, we recommend you avoid them for the first 3 months after your surgery[address] Dr. Cadet may advise you to work with a physical therapist to strengthen the muscles around your neck and back - this will be discussed at your follow - up appointments. The pain or numbness you were having in your arms before surgery should get better or go away completely. This care sheet gives you a general idea about how long it will take for you to recover. But each person recovers at a different pace. Follow the steps below to get better as quickly as possible. How can you care for yourself at home? Activity ? Rest when you feel tired. Getting enough sleep will help you recover. ? Try to walk each day. Start by walking a little more than you did the day before. Bit by bit, increase the amount you walk. Walking boosts blood flow and helps prevent pneumonia and constipation. Walking may also decrease your muscle soreness after surgery. ? No lifting anything that is more that 5 pounds. This may include heavy grocery bags and milk containers, a heavy briefcase or backpack, cat litter or dog food bags, a child, or a vacuum block cleaner. ? Avoid strenuous activities, such as bicycle riding, jogging, weightlifting, or aerobic exercise, until your doctor says it is okay. ? Do not drive until your follow-up visit after your surgery, or until your doctor says it isokay. ? Avoid taking long car trips for 2 to 4 weeks after surgery. Your neck may become tired and painful from sitting too long in one position. ? You will probably need to take 4 to 6 weeks off from work. It depends on the type of work you do and how you feel. ? You may have sex as soon as you feel able, but avoid positions that put stress on your neck or cause pain. Diet ? You can eat your normal diet. If your stomach is upset, try bland, low-fat foods like plain rice, broiled chicken, toast, and yogurt ? Drink plenty of fluids. If you have kidney, heart, or liver disease and have to limit fluids, talk with your doctor before you increase the amount of fluids you drink. ? You may notice that your bowel movements are not regular right after your surgery. This is common. Try to avoid constipation and straining with bowel movements. You may want to take a fiber supplement every day. If you have not had a bowel movement after a couple of days, ask your doctor about taking a mild laxative. Medicines ? Take pain medicines exactly as directed. 1. If Dr. Cadet gave you a prescription medicine for pain, take lt as prescribed. 2. Do not take two or more pain medicines at the same time unless the doctor told you to. Many pain medicines have acetaminophen, which is Tylenol. Too much acetaminophen {Tylenol) can be harmful. 3. If you think your pain pill is making you sick to your stomach: 4. Take your pills after meals (unless your doctor has told you not to). 5. Ask your Dr. for a different pain pill. Incisioncare ? Remove your dressing 48hours after your surgery. Ok to shower and get the incision wet. Do not overtly wash your incision. When done, pad dry, leave open to air thereafter. Avoid creams and ointments directly on your incision. ? Your sutures in the incision will dissolve and fall out on their own. ? Keep the area clean and dry. You may cover it with a gauze bandage if it weeps or rubs against clothing; if you choose to do this, change the dressing everyday. Other instructions ? Use a heating pad, hot water bottle, or gentle massage on your back to reduce stiffness. Avoid putting heat on your incision When should you call for help? ? Call 911 anytime you think you may need emergency care. For example, call if: ? You pass out (lose consciousness). ? You have sudden chest pain and shortness of breath, or you cough upblood. ? You cannot swallow. ? You have severe pain in your neck or back. ? Call your Dr. or seek immediate medical care if: ? You have pain that does not get better after you take pain pills. ? You have loose stitches, or your incision comes open. ? You have blood or fluid draining from the incision. ? You have signs of infection, such as: 1. Increased pain, swelling, warmth, or redness. 2. Red streaks leading from the site. 3. Pus draining from the site. 4. Swollen lymph nodes in your neck or armpits. 5. A fever. ? You have severe pain in your arms. ? You have new or increased weakness or numbness in your arms. ? Watch closely for any changes in your health, and be sure to contact your doctor if: ? You do not have a bowel movement after taking a laxative. Discharge Attestations Time Spent in Discharge Care*: less than 30 min Quality Metrics Clinical Quality Measures [ No reported AMI, CVA or VTE this stay] Coding Level of Care Code Acute Code for Chg Fwjames
--- OUTSIDE RECORDS SUMMARY | 2025-03-18 11:00 | XMS_ITS | Clinical Summary ---
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
--- OUTSIDE RECORDS SUMMARY | 2025-03-18 11:00 | XMS_ITS | Patient Health Record ---
Author Organization [facility] Address [address] [place] [address] Care Team Providers Care Denture Contour Wire Specialist Name Role Phone Narinder Morris Unavailable [phone] Reason For Referral No Information Medications Medication SIG (Take, Route, Frequency, Duration) Notes Start Date End Date Status pantoprazole 40 MG Enteric Coated Tablet pantoprazole 40 MG Enteric Coated Tablet 08/31/2014 Active CeleXA 40 MG Tablet 2 tab(s) po qd Oral; Duration: 30 Celexa 40mg Tablet 2 tab(s) po qd 12/22/2007 Active CeleBREX 200 MG Capsule 1 cap(s) po qd in the evening. Oral; Duration: 30 Celebrex 200mg Capsules 1 cap(s) po qd in the evening. 12/22/2007 Active Nortriptyline HCl 25 MG Capsule 1-2 cap(s) po q hs Oral; Duration: 30 Nortriptyline 25mg Capsules 1-2 cap(s) po q hs #60 (Sixty) capsule(s) 12/22/2007 Active Acetaminophen 325 MG / Hydrocodone Bitartrate 5 MG Oral Tablet Acetaminophen 325 MG / Hydrocodone Bitartrate 5 MG Oral Tablet 08/31/2014 Active Social History Social History Additional Details Category Social Info Options Details zzMigrated Social History Migrated Social History Occupation: Disabled (due to Disabled due to __ (enter)) Marital Status: Single Children: 3 children Problems Problem Type SNOMED Code ICD Code Onset Dates Problem Status W/U Status Risk Notes Problem Rheumatoid arthritis (93945761) Rheumatoid arthritis (714.0) 12/26/19 08 Active confirmed [id number] 11- Problem Fibromyalgia (928047625) Fibromyalgia (729.1) 12/22/19 08 Problem resolved confirmed [id number] 11- Problem Emphysema (12040315) Emphysema (492.8) 12/26/19 08 Active confirmed [id number] 11- Problem General examination of patient (002629211) Annual exam (V70.0) 12/22/19 08 Problem resolved confirmed [id number] 11- Problem Abnormal glucose level (045083067) Abnormal glucose, Other (790.29) 12/26/19 08 Active confirmed [id number] 11- Plan Of Treatment No Information Medical (General) History Surgical History Surgery Date(Month/Year) NONE
--- OUTSIDE RECORDS SUMMARY | 2025-03-18 11:00 | XMS_ITS | Encounter Summary ---
Author Organization [facility] Address [address] [place] [address] Care Team Providers Care Publication Manager Name Role Phone Unavailable Primary Care Provider Unavailabl e Encounter Details Date Type Department Care Team (Late st Contact Info) Description 01/23/2008 Outpatient Historical [facility] [address] [facility] [address] [place] [address] Salomón Mello MD [address] [facility] [address] [place] [id number] Social History Tobacco Use Types Packs/Day Years Used Date Smoking Tobacco: Never Assessed Sex and Gender Information Value Date Recorded Sex Assigned at Not on file 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
== END 2025-03-18 12:26 | disposition home or self-care (01) | DRG 472 ==
LOC: MEDSURG 20:22
PROVIDERS: Admitting Provider Orthopaedic Surgery; PCP Family Medicine; Visit Provider Orthopaedic Surgery
PROC: 0RB30ZZ Excision of Cervical Vertebral Disc, Open Approach (ICD-10-PCS; CPT 22551; principal; 2025-03-17 11:10)
DX: M48.02 Spinal stenosis, cervical region (principal); G99.2 Myelopathy in diseases classified elsewhere; M54.12 Radiculopathy, cervical region; J44.9 Chronic obstructive pulmonary disease, unspecified; I10 Essential (primary) hypertension; M05.9 Rheumatoid arthritis with rheumatoid factor, unspecified; Z85.118 Personal history of other malignant neoplasm of bronchus and lung; Z90.2 Acquired absence of lung [part of]; Z87.891 Personal history of nicotine dependence
CPT/HCPCS: 72040; 76000; 86850; 86900; 97110; 97116; 97161; A4649; C1713; C1763; C9359; J0131; J0330; J0690; J1100; J1171; J1885; J2270; J2405; J2704; J2710; J3010; J3490; J7030; J7120; J9999

== ENCOUNTER → 2025-04-01 12:58 | Outpatient (BNVA) | payer MEDICARE, MEDICAID, SELFPAY | PROVIDERS: PCP Family Medicine; Visit Provider Orthopaedic Surgery | DX: Z98.890 Other specified postprocedural states (principal); Z98.1 Arthrodesis status | CPT/HCPCS: 99024 ==

== ENCOUNTER → 2025-04-29 10:40 | Outpatient (BNVA) | payer MEDICARE, MEDICAID, SELFPAY | PROVIDERS: PCP Family Medicine; Visit Provider Orthopaedic Surgery | DX: Z98.890 Other specified postprocedural states (principal); Z98.1 Arthrodesis status | CPT/HCPCS: 72040; 99024 ==